=== PATIENT | female | born 1985 | race Caucasian/White ===

== ENCOUNTER 2020-04-26 14:09 | Outpatient (CLI) | payer BC, SELFPAY ==
--- NOTE | ~2020-04-26 | US_ITS ---
EXAMINATION: US OB <= 14 weeks fetus DATE: 04/26/2020 14:45 INDICATION: Hemorrhage during first trimester of TECHNIQUE: Real-time pelvic ultrasound utilizing both a transvaginal and transabdominal probe was pe rformed. The interpreting radiologist was not present for the study. COMPARISON: None. FINDINGS: The uterus measures 11.8 x 7.5 x 7.5 cm. There is an intrauterine gestational sac. A yolk sac and fe [place] pole are identified. The crown rump length measures 1.9, which correlates with an estimated gesta tional age of 8 weeks and 4 days. heart motion is identified measuring 171 beats per minute (bp m) by M-mode Doppler.The left and right ovaries are not visualized. There is no free fluid in the pel vis. IMPRESSION: 1. Single living fetus with heart rate of 171 bpm. 2. Gestational age by ultrasound of 8 weeks 4 day(s) +/- 4 day(s) with ultrasound estimated date of delivery (KOFI) of 12/02/2020. Reviewed, dictated and finalized at location B. IMPRESSION: 1. Single living fetus with heart rate of 171 bpm. 2. Gestational age by ultrasound of 8 weeks 4 day(s) +/- 4 day(s) with ultraso und estimated date of delivery (KOFI) of 12/02/2020.
== END 2020-04-26 14:10 | disposition home or self-care (01) ==
LOC: ANHIMG 14:22
PROVIDERS: PCP Physician Assistant; Visit Provider Obstetrics & Gynecology
DX: O20.9 Hemorrhage in early pregnancy, unspecified (principal); Z3A.08 8 weeks gestation of pregnancy
CPT/HCPCS: 76801

== ENCOUNTER 2020-11-26 06:37 | Inpatient (IN) | payer BC, SELFPAY ==
[2020-11-26] VITALS (62 sets, daily range): BP systolic 109–146; BP diastolic 62–98; PULSE 61–120; RESP 16–20; TEMP 36.4–37.2; O2SAT 98–100; BMI 33.1
--- NOTE | 2020-11-26 07:00 | LDADM ---
This patient, Izzy Burdick, was admitted to Labor/Delivery/Recovery 104 on 11/26/20 at 06:37. Plans for labor, pain management and were discussed with patient. Patient/family oriented to hospital policies and general routines including ID bracelet, bed and alarms, visiting hours, pain management, procedures, bathroom and other care routines, personal items, smoking policy, room service/diet and guest tray routines, infant security routines, and visiting hours. Patient/Family are encouraged to report perceived risks to care and to ask questions if they do not understand what they are told or what they should do. See OBIX for further documentation.
[2020-11-26] MEDS: LACTATED RINGERS 1,000 ML 125 ML IV CONT ×2 (07:15→09:15)
[2020-11-26] MEDS: OXYTOCIN 30 UNITS/NS 500 ML 30 UNITS/500 ML BAG IV CONT (07:16)
[2020-11-26 07:56] LABS: Basophils Percent Auto 0.5 % (0.2-1.2); Eosinophils Absolute Auto 0.1 K/mm3 (0-0.3); Immature Granulocyte Absolute 0.07 K/mm3 (0.00-0.031); Immature Granulocyte Percent A 0.8 % (0-0.5); Lymphocytes Absolute Auto 1.72 K/mm3 (0.9-3.2); Lymphocytes Percent Auto 20.5 % (18.3-44.2); Mean Corpuscular HGB Conc 34.2 g/dl (32-36); Mean Corpuscular Hemoglobin 32.3 pg (26-34); Mean Corpuscular Volume 94.3 fl (80-100); Mean Platelet Volume 11.3 fl (7.4-10.4); Monocytes Absolute Auto 0.5 K/mm3 (0.1-0.6); Monocytes Percent Auto 5.4 % (2.6-8.5); Neutrophils Percent Auto 71.8 % (45.5-73.1); Platelet Count Result 186 k/mm3 (150-375); Red Blood Count 4.03 M/mm3 (4.2-5.4); Red Cell Distribution Width 13.2 % (11.5-14.5); White Blood Count 8.4 K/mm3 (4.5-10.0)
[2020-11-26 10:28] LABS: Rapid Plasma Reagin Non-Reactive (NonReactive)
--- NOTE | 2020-11-26 11:04 | WPDANESEPPF ---
Anes - Initial Pre Proc Eval Procedure: labor epidural Date/Time: 11/26/20 11:04 Surgeon: Gregory Jenkins MD Pre Op Diagnosis: labor pain Pre Op Diagnosis: Induction of Labor Patient Data Age: 35 Gender: F Height: 1.7 m Weight: 96 kg Last Vital Signs Temp 36.6 C 11/26/20 09:30 Pulse 68 11/26/20 11:00 BP 141/82 H 11/26/20 11:00 Pulse Ox 100 11/26/20 11:00 Allergies Allergy/AdvReac Type Severity Reaction Status Date / Time No Known Allergies Allergy Unknown Verified 11/20/20 09:55 Home Medications Medication Instructions Recorded Confirmed Type PNV cmb#95-ferrous fumarate-FA 1 tablet PO DAILY 10/29/20 11/26/20 History [] cholecalciferol (vitamin D3) 25 mcg PO DAILY 10/29/20 11/26/20 History [Vitamin D3] Laboratory Tests 11/26/20 11/26/20 11/26/20 06:57 06:57 06:57 WBC 8.4 K/mm3 K/mm3 (4.5-10.0) RBC 4.03 M/mm3 L M/mm3 (4.2-5.4) Hgb 13.0 g/dL g/dL (12.0-15.0) Hct 38.0 % % (37.0-47.0) MCV 94.3 fl fl (80-100) MCH 32.3 pg pg (26-34) MCHC 34.2 g/dl g/dl (32-36) RDW 13.2 % % (11.5-14.5) Plt Count 186 k/mm3 k/mm3 (150-375) MPV 11.3 fl H fl (7.4-10.4) Immature Gran % (Auto) 0.8 % H % (0-0.5) Neut % (Auto) 71.8 % % (45.5-73.1) Lymph % (Auto) 20.5 % % (18.3-44.2) [place] % (Auto) 5.4 % % (2.6-8.5) Eos % (Auto) 1.0 % % (0-4.4) Baso % (Auto) 0.5 % % (0.2-1.2) Lymph # (Auto) 1.72 K/mm3 K/mm3 (0.9-3.2) [place] # (Auto) 0.5 K/mm3 K/mm3 (0.1-0.6) Eos # (Auto) 0.1 K/mm3 K/mm3 (0-0.3) Baso # (Auto) 0.0 K/mm3 K/mm3 (0.0-0.1) Abs Immat Gran (auto) 0.07 K/mm3 H K/mm3 (0.00-0.031) Absolute Neuts (auto) 6.0 K/mm3 K/mm3 (1.3-6.7) Absolute Nucleated RBC 0.0 K/mm3 K/mm3 (0.0-0.012) Nucleated RBC % 0.0 % % (0.0-0.2) RPR Non-reactive (NonReactive) Blood Type O Positive Antibody Screen Negative Patient hx anesthesia problems: none Family hx anesthesia problems: none Results Review: All pre-operative results and documents have been reviewed as part of the pre-operative evaluation. [facility] Past Medical History Medical History Anemia Anxiety Pneumonia x2 Vaginal delivery x2 Surgical History Surgical History H/O: knee surgery Family History Family History Father Hypertension Family history of elevated blood lipids Family history of hypercholesterolemia Mother Hypertension Family history of elevated blood lipids Family history of ankylosing spondylitis Sibling Patient's brother is in good health Social History Social History Smoking status: Never smoker Second hand tobacco smoke exposure: No Alcohol intake: never Substance use: unknown Spiritual care concerns: No Anes - Eval Final PreProcedure Day of Procedure 11/26/20 11:04 Patient weight: obese ASA classification: II Anesthetic plan: proceed Anesthesia type and monitoring: regional epidural and standard monitoring Results Review: All pre-operative results and documents have been reviewed as part of the pre-operative evaluation. Informed Consent: The patient's anesthetic plan and its attendant risks and benefits were discussed with the patient/family/POA. Questions were solicited and answers provided to the satisfaction of the patient/family/POA.
--- NOTE | 2020-11-26 11:56 | PM.OBPRVD ---
OB - Delivery Note Procedure Delivery date: 11/26/20 Procedure: Spontaneous vaginal delivery Intrapartal events: None Induction method: per pitocin protocol Delivery augmentation: rupture of membranes Delivery monitor: external FHT Route of delivery: Laceration Description: Perineal - 2nd Degree Delivery repair: vicryl (3.0 vicryl) Specimen: Yes (placenta and cord) Quantitative Blood Loss (ml): 200 Anesthesia type: Epidural Disposition: floor Narrative: Patient admitted for medical induction of labor. She was started on Pitocin per induction protocol. She had assisted rupture of membranes at approximately 0830, clear fluid. She progressed to active labor. She epidural placed upon request. She had a vaginal delivery. There was a tight nuchal cord which was surgically reduced. Baby Date of : 11/26/20 Time of : 11:32 Weeks of gestation at delivery: 39 Infant gender: Male Weight (pounds): 8 Weight (ounces): 12 presentation: vertex position: Left Occiput Anterior Placenta delivery description: Spontaneous cord vessel description: Nuchal Cord and Tight score one minute: 8 score five minutes: 9
[2020-11-26] MEDS: OXYTOCIN 30 UNITS/NS 500 ML 30 UNITS/500 ML BAG 125 UNITS IV CONT (12:14)
--- NOTE | 2020-11-26 14:34 | PC.NURSE ---
Patient transferred to post room #286 via [id number]. Support person present. Oriented to unit, room, information board, rooming in, admission packet and security measures. Patient verbalizes understanding.
[2020-11-27 05:00] VITALS: BP 118/79; PULSE 60; RESP 18; TEMP 37.1; O2SAT 99
[2020-11-27 05:36] LABS: Hematocrit 33.2 % (37.0-47.0); Hemoglobin 11.4 g/dL (12.0-15.0)
--- NOTE | 2020-11-27 06:06 | PM.IMHP ---
H&P: HPI History of Present Illness Date/Time: 11/26/20 06:06 Patient at 39 6/7 weeks by EDC of 11/27/20 by LMP of 02/21/20 consistent with 8 week ultrasound, admitted for medical induction of labor. PNC uncomplicated. Labs reviewed. GBS neg. Discussed risk benefit of induction vs awaiting spontaneous labor vs postdates induction. She has opted for induction today. Chief Complaint: Medical induction of labor Review of Systems Review of Systems: All systems reviewed & are unremarkable except as noted in HPI and below Constitutional: Constitutional: Reports no additional constitutional complaints and Denies headache(s) Eyes: Eyes: Denies spots in vision ENT: Reports system reviewed and no additional complaints, except as documented and Denies headache(s) Cardiovascular: Cardiovascular: Denies chest pain and Denies dyspnea Respiratory: Respiratory: Denies dyspnea Gastrointestinal: Gastrointestinal: Reports no additional gastrointestinal complaints Genitourinary: Genitourinary: Reports amenorrhea Musculoskeletal: Musculoskeletal: Reports no additional musculoskeletal complaints Integumentary/Breasts: Skin/Breast: Denies breast mass and Denies rash Neurologic: Denies headache(s) Psychiatric: Psychiatric: Reports no additional psychiatric complaints [facility] Past Medical History Medical History Anemia Anxiety Pneumonia x2 Vaginal delivery x2 Surgical History Surgical History H/O: knee surgery Family History Family History Father Hypertension Family history of elevated blood lipids Family history of hypercholesterolemia Mother Hypertension Family history of elevated blood lipids Family history of ankylosing spondylitis Sibling Patient's brother is in good health Social History Social History Smoking status: Never smoker Second hand tobacco smoke exposure: No Alcohol intake: never Substance use: unknown Spiritual care concerns: No Meds Home Medications and Allergies Home Medications Medication Instructions Recorded Confirmed Type PNV cmb#95-ferrous fumarate-FA 1 tablet PO DAILY 10/29/20 11/26/20 History [] cholecalciferol (vitamin D3) 25 mcg PO DAILY 10/29/20 11/26/20 History [Vitamin D3] Allergies Allergy/AdvReac Type Severity Reaction Status Date / Time gluten Allergy Abdominal Verified 11/26/20 13:20 Pain lactase [From Dairy Aid] Allergy Abdominal Verified 11/26/20 13:20 Pain Vital Signs Vital Signs - 24 hr 11/26/20 07:00 11/26/20 07:15 11/26/20 07:30 Temperature Pulse Rate 98 82 78 Respiratory Rate Blood Pressure 132/78 130/87 132/81 Pulse Oximetry 11/26/20 08:00 11/26/20 08:01 11/26/20 08:15 Temperature 98.6 F Pulse Rate 81 80 Respiratory Rate Blood Pressure 129/82 133/83 Pulse Oximetry 11/26/20 08:46 11/26/20 09:01 11/26/20 09:16 Temperature Pulse Rate 75 77 98 Respiratory Rate Blood Pressure 124/80 123/89 146/81 H Pulse Oximetry 100 11/26/20 09:21 11/26/20 09:23 11/26/20 09:26 Temperature Pulse Rate 88 69 75 Respiratory Rate Blood Pressure 127/75 139/98 H 132/83 Pulse Oximetry 100 100 11/26/20 09:28 11/26/20 09:30 11/26/20 09:31 Temperature 97.9 F Pulse Rate 74 77 Respiratory Rate Blood Pressure 121/68 121/70 Pulse Oximetry 100 11/26/20 09:33 11/26/20 09:35 11/26/20 09:38 Temperature Pulse Rate 74 69 66 Respiratory Rate Blood Pressure 121/74 125/68 117/68 Pulse Oximetry 100 11/26/20 09:40 11/26/20 09:43 11/26/20 09:45 Temperature Pulse Rate 71 77 83 Respiratory Rate Blood Pressure 125/72 125/75 119/74 Pulse Oximetry 100 100 11/26/20 09:48 11/26/20 09:50 11/26/20 09:53 Temperat
--- NOTE | 2020-11-27 06:13 | P.PNOB_ITS ---
OB - PN: Subj Subjective Date/time seen: 11/26/20 0830 FHT 145 Cat 1 cervix 3.5/70/-2 AROM clear Continue pitocin induction. OB - PN: Obj Data Labs CBC & Chem 7: 11/27/20 04:49 Labs: Laboratory Results - last 24 hr 11/26/20 11/26/20 11/26/20 06:57 06:57 06:57 WBC 8.4 RBC 4.03 L Hgb 13.0 Hct 38.0 MCV 94.3 MCH 32.3 MCHC 34.2 RDW 13.2 Plt Count 186 MPV 11.3 H Immature Gran % (Auto) 0.8 H Neut % (Auto) 71.8 Lymph % (Auto) 20.5 [place] % (Auto) 5.4 Eos % (Auto) 1.0 Baso % (Auto) 0.5 Lymph # (Auto) 1.72 [place] # (Auto) 0.5 Eos # (Auto) 0.1 Baso # (Auto) 0.0 Abs Immat Gran (auto) 0.07 H Absolute Neuts (auto) 6.0 Absolute Nucleated RBC 0.0 Nucleated RBC % 0.0 RPR Non-reactive Blood Type O Positive Antibody Screen Negative 11/27/20 04:49 WBC RBC Hgb 11.4 L Hct 33.2 L MCV MCH MCHC RDW Plt Count MPV Immature Gran % (Auto) Neut % (Auto) Lymph % (Auto) [place] % (Auto) Eos % (Auto) Baso % (Auto) Lymph # (Auto) [place] # (Auto) Eos # (Auto) Baso # (Auto) Abs Immat Gran (auto) Absolute Neuts (auto) Absolute Nucleated RBC Nucleated RBC % RPR Blood Type Antibody Screen OB - PN A/P Time Spent With Patient Time: Total time spent is greater than 50% in coordination of care (as documented) at patient's floor/unit and/or counseling patient:
--- NOTE | 2020-11-27 06:14 | P.PNOB_ITS ---
OB - PN: Subj Subjective Date/time seen: 11/27/20 0840 Patient comments: pain well controlled, tolerating diet and other (Decreasing lochia.) baby status: doing well and nursing well [place] feeding status: exclusively breast feeding OB - PN: Obj Data Labs CBC & Chem 7: 11/27/20 04:49 Labs: Laboratory Results - last 24 hr 11/26/20 11/26/20 11/26/20 06:57 06:57 06:57 WBC 8.4 RBC 4.03 L Hgb 13.0 Hct 38.0 MCV 94.3 MCH 32.3 MCHC 34.2 RDW 13.2 Plt Count 186 MPV 11.3 H Immature Gran % (Auto) 0.8 H Neut % (Auto) 71.8 Lymph % (Auto) 20.5 [place] % (Auto) 5.4 Eos % (Auto) 1.0 Baso % (Auto) 0.5 Lymph # (Auto) 1.72 [place] # (Auto) 0.5 Eos # (Auto) 0.1 Baso # (Auto) 0.0 Abs Immat Gran (auto) 0.07 H Absolute Neuts (auto) 6.0 Absolute Nucleated RBC 0.0 Nucleated RBC % 0.0 RPR Non-reactive Blood Type O Positive Antibody Screen Negative 11/27/20 04:49 WBC RBC Hgb 11.4 L Hct 33.2 L MCV MCH MCHC RDW Plt Count MPV Immature Gran % (Auto) Neut % (Auto) Lymph % (Auto) [place] % (Auto) Eos % (Auto) Baso % (Auto) Lymph # (Auto) [place] # (Auto) Eos # (Auto) Baso # (Auto) Abs Immat Gran (auto) Absolute Neuts (auto) Absolute Nucleated RBC Nucleated RBC % RPR Blood Type Antibody Screen OB - PN A/P Plan day: 1 Plan: routine care Comments: Patient doing well. She request discharge today. Time Spent With Patient Time: Total time spent is greater than 50% in coordination of care (as docume nted) at patient's floor/unit and/or counseling patient: Exam Psych: Affect: normal affect Other: Abd: fundus firm below umbilicus, nontender Perineum: healing Ext: nontender
[2020-11-27 08:55] VITALS: BP 120/78; PULSE 85; RESP 18; TEMP 36.9; O2SAT 99
--- NOTE | 2020-11-27 09:43 | WPDANLDPN2 ---
Anes-Prog Note L&D Date/Time: 11/27/20 09:43 Comfortable throughout: labor and delivery Neuraxial method: epidural Epidural/Spinal procedure site: clean & non-tender Neuro status: Neuro function grossly intact. Cardiovascular status: normal Respiratory status: normal Airway patency: baseline Mental status: baseline Post-Op hydration status: normal Vital Signs: Last Vital Signs Temp 36.9 C 11/27/20 08:55 Pulse 85 11/27/20 08:55 Resp 18 11/27/20 08:55 BP 120/78 11/27/20 08:55 Pulse Ox 99 11/27/20 08:55 Pain score (VAS): 02/18 Post-procedural complaints: none Patient feedback: Patient satisfied with anesthetic care.
--- NOTE | 2020-11-27 10:35 | PM.OBDSVD ---
DS: Admitting Diagnosis Discharge Date 11/27/20 Admitting Diagnosis Induction of labor DS: Discharge Diagnosis Discharge Diagnosis (1) Delivery normal: Code(s): O80 - Encounter for full-term uncomplicated delivery Status: Acute OB - DS: Summary Hospital Course Hospital Course: Patient admitted for medical induction of labor on 11/26 20 with pitocin. She had assisted rupture of membranes and progressed to complete. She had an uncomplicated vaginal delivery. she did well. Her pain waas controlled. She was well and ambulating without problems. OB Procedures : Ultrasound OB Procedures Intrapartum: Spontaneous Vag Delivery OB Procedures: : None Peripartum Data Infant Delivery Method: Natural Vaginal Laceration Description: Perineal - 2nd Degree complications: none Status at Discharge Functional status at discharge: independent ambulation Time Spent with Patient Time attestation: Total time spent providing and/or coordinating discharge services: Exam Const: General: cooperative Orientation/consciousness: oriented to person, oriented to place and oriented to time HENMT: General nose exam: Normal external nose present Eyes: General: appearance normal, both eyes and all related structures Resp: Effort & Inspection: normal respiratory effort GI: Inspection: normal to inspection : Other: perineum healing Skin: General skin exam: normal color Neuro: General: oriented to person, oriented to place and oriented to time Extrem: General: normal to inspection and no calf tenderness Other: 2+ edema bilat nontender bilat Psych: Appearance: grossly normal Mental Status: mental status grossly normal DS: Data Data Completed and Pending Pending studies at discharge: Pending at discharge 11/26/20 12:53 Surgical [PTH] Routine Labs on day of discharge: Labs from last 24 hours 11/27/20 04:49 Hgb 11.4 L Hct 33.2 L Discharge Plan Discharge Attending physician on discharge: Gregory Jenkins Consulting providers: Abelardo Patel Discharging Clinician: Gregory Jenkins Anticipated Discharge Date/Time: 11/27/20 10:40 Patient Disposition: Home, Self-Care Activity: may shower, no straining and pelvic rest Diet: regular Discharge Instructions: Education: Mom and Baby Guide Given to: Mother Follow-Up: Call your delivering provider's office for an appointment to be seen in: 6 Weeks Mom and baby [facility] the follow-up appointment. Appointment Date/Time: November 28, 2020 at 9:00 am What to expect at your follow-up visit: Physical Assessment Call [phone] if you are unable to keep your appointment time. BREAST CARE: * Wear a snug supportive bra. * For engorgement discomfort: Breast Feeding: * Apply warm moist washcloths * Express milk as needed to relieve engorgement * Wear loose clothing * For sore nipples: * Identify correct latch-on * Apply warm moist washcloths before and after nursing * Air dry nipples after nursing * May apply Lansinoh cream to nipples EPISIOTOMY/PERINEAL CARE: * Until bleeding stops, use your binu bottle after urinating * Change your pad frequently throughout the day * You may take sitz baths several times a day (fill your bathtub with warm water and soak for 20 minutes.) Do NOT bathe in the water * No tub baths until seen by your physician - You may shower ACTIVITY: * Rest as much as possible. * Do not exercise or lift anything heavier than your baby (such as laundry or other children.) * Avoid stairs or driving as much as possible. * Do not put anything into the vagina. No douching, tampons, or sexual activity until seen by physician. NOTIFY PHYSICIAN IF YOU HAVE ANY QUESTIONS OR IF ANY OF THE FOLLOWING SYMPTOMS OCCUR: * If your episiotomy or
--- NOTE | 2020-11-27 11:18 | PC.NURSE ---
Patient viewed the discharge video Mother & Baby Care, The First Two Weeks . Patient was given the opportunity and encouraged to ask questions. Patient verbalized understanding of information shared and has been given the mother/baby guide for home reference.
--- NOTE | 2020-11-27 12:05 | PC.NURSE ---
Consult with pt., mother reports infant is eagerly latching without difficulties or discomfort. Mother states she has tenderness from previous feedings with shallow latch due to her positioning while feeding. Mother has since resolved. Mother denies the need for assist or observation of feeding. Reviewed feeding cues, frequencies, duration of feedings, feeding elimination flow sheet, and signs of adequate intake. Demonstrated stimulation techniques to wake for feeding. Discussed positioning/alignment, holding breast and asymmetrical latch on. Reviewed signs of a correct latch, effective nursing and suck swallow ratio. Nipple care reviewed. Requested mother to call out next feeding and/or if she is unable to latch for feeding or she has discomfort with nursing. Instructed feeding should be initiated three hours from start of last feeding or if feeding cues are noted before. Mother voiced understanding of information shared. Mother states she wishes discharge later this day. Mother is feeding as required and waking to feed if needed. Infant is currently meeting outcomes for output, jaundice and feeding frequencies. Possible discrepancy in weight. Mother states she feels confident to continue effective at home. Reviewed transition to breast milk, signs of adequate intake, and engorgement/relief. Instructed to call ICP if intake/output less than required. Reviewed regular medications mother is taking. Information provided per Jahaira. Reviewed community resources on the [facility] website and in the Mom/Baby guide. Information on outpatient services provided. Mother has no further questions at this time.
[2020-11-28 09:35] VITALS: BP 115/68; PULSE 97; RESP 20; TEMP 37.7; O2SAT 100
--- NOTE | 2020-11-28 10:02 | PC.NURSE ---
Pt seen after follow up visit for weight loss and nipple tenderness. Mother reports tenderness on and off during entire feeding. Demonstrated stimulation techniques to wake for feeding. Mother reports having to wake for feedings and he is falling asleep at breast. Advised to unwrap, undress, stimulate with rubbing back and sternum before feedings to wake so feeding cues are noted before putting to breast. Assisted with to breast. Reviewed positioning/alignment in cross cradle, holding breast in ?U? hold and guided asymmetrical latch on. Reviewed rational for each. is able to freely thrust tongue past gum ridge and flange both lips. Skin is intact on both nipples, slight redness and no bruising noted. able to latch correctly within a few attempts. nursed eagerly with steady draws and occasional swallowing noted for bursts then long pausing. Mother reports this is what infant does for most feedings. Advised to continue to stimulate during entire feeding to keep awake and increase intake and stimulation and assist with maintaining a deep latch. would slip to shallow latch with pausing, mother reporting tenderness. Reviewed signs of a correct latch, effective nursing and suck swallow ratio. Demonstrated how to adjust latch more deeply while feeding if needed. Discussed mother's milk should be transitioning in within the next day and infant may respond to increased milk supply. Mother reports she can feel the difference in latch with less tenderness. Nipple care reviewed of lanolin after feedings, warm compresses as needed. Suggested small amounts of formula 5mls before feedings to wake and entice into steady nursing, if infant does not feed by 5 hours 25mls should be given. Reviewed to keep accurate records of all output and calling ICP if less than required or dark urine noted and if does not feed for 5 hours. Suggested mother initiate pumping other breast if infant does not feed on both per feeding to stimulate milk supply. Mother reports she will be seeing care provider tomorrow
== END 2020-11-27 13:25 | disposition home or self-care (01) | DRG 807 ==
LOC: ANHLDR 06:42 → ANHOB2 14:44
PROVIDERS: Admitting Provider Obstetrics & Gynecology; PCP Physician Assistant; Visit Provider Obstetrics & Gynecology
DX: O69.1XX0 Labor and delivery complicated by cord around neck, with compression, not applicable or unspecified (principal); Z37.0 Single live birth; Z3A.39 39 weeks gestation of pregnancy; O70.1 Second degree perineal laceration during delivery; O77.0 Labor and delivery complicated by meconium in amniotic fluid; O99.02 Anemia complicating childbirth; D64.9 Anemia, unspecified
CPT/HCPCS: 36415; 85014; 85018; 85025; 86592; 86850; 86900; 86901; 88307; A9270; J2590; J2795; J7120

== ENCOUNTER 2021-01-29 13:45 | Outpatient (CLI) | payer BC, SELFPAY ==
--- NOTE | ~2021-01-29 | XR_ITS ---
XR chest 2V 01/29/2021 14:07 Indication: Hemoptysis. Fever. Covid exposure. Procedure: 2 view chest Comparison: No prior studies for comparison. Findings: Right basilar infiltrates, suspicious for pneumonia. Heart size normal. Mild dextroscoliosi s of the thoracic spine. No pleural effusion, edema or pneumothorax. Impression: 1: Right basilar infiltrates, suspicious for pneumonia. Reviewed, dictated and finalized at location A. END HAND Impression: 1: Right basilar infiltrates, suspicious for pneumonia.
== END 2021-01-29 13:46 | disposition home or self-care (01) ==
LOC: ANHIMG 13:48
PROVIDERS: PCP Physician Assistant; Visit Provider Physician Assistant
DX: R04.2 Hemoptysis (principal); R91.8 Other nonspecific abnormal finding of lung field
CPT/HCPCS: 71046